=== PATIENT | female | born 1995 | race Two or more races ===

== ENCOUNTER 2016-03-29 08:23 | Emergency (ER) | payer SELFPAY ==
[2016-03-29] MEDS ORDERED: CYCLOBENZAPRINE HCL 10 MG TABLET ONE (09:10)
[2016-03-29] MEDS ORDERED: IBUPROFEN 800 MG TABLET ONE (09:10)
== END 2016-03-29 09:19 | disposition home or self-care (01) ==
LOC: ED 08:23
DX: M54.5 Low back pain (principal); V43.62XA Car passenger injured in collision with other type car in traffic accident, initial encounter; Y92.410 Unspecified street and highway as the place of occurrence of the external cause
CPT/HCPCS: 99283 ×2; A9270